=== PATIENT | female | born 1960 | race Caucasian/White ===

== ENCOUNTER 2021-09-27 19:49 | Emergency (ER) | payer OTHER ==
[~2021-09-27 19:49] MED LIST: AUGMENTIN 875-1 EACH PO; AZITHROMYCIN250 MG PO; IBUPROFEN800 MG PO
[2021-09-27 21:11] LABS: BASOPHIL 0.5 % (0-2); EOSINOPHIL 2.9 % (0-5); HCT 41.6 % (37.0-47.0); HGB 13.5 g/dl (12.5-16.0); MCH 31.1 pg (25.0-31.0); MCHC 32.5 g/dL (32.0-36.0); MCV 95.9 fL (78.0-100.0); MONOCYTE 8.4 % (0-12); MPV 9.5 fL (6.0-9.5); NRBC 0; PLT 258 K/uL (150-400); RBC 4.34 M/uL (4.20-5.40); RDW 12.9 % (11.5-14.0); WBC 8.3 K/uL (4.0-10.5)
[2021-09-27 21:40] LABS: ALBUMIN 3.8 g/dL (3.4-5.0); BILIRUBIN - TOTAL 0.4 mg/dL (0.2-1.0); BUN/CREAT RATIO (CALC) 30.8 RATIO; CREATININE 0.78 mg/dL (0.51-0.95); GLOBULIN (CALCULATION) 3.7 g/dL; POTASSIUM 3.7 mmol/L (3.5-5.1); TOTAL PROTEIN 7.5 g/dL (6.4-8.2)
[2021-09-27 21:51] LABS: BILIRUBIN NEGATIVE (NEGATIVE); BLOOD NEGATIVE Ery/uL (NEGATIVE); CLARITY CLEAR (CLEAR); COLOR YELLOW (YELLOW); GLUCOSE (U) NORMAL (NORMAL); LEUKOCYTES TRACE Leu/uL (NEGATIVE); NITRITE NEGATIVE (NEGATIVE); PROTEIN NEGATIVE (NEGATIVE); SPECIFIC GRAVITY <=1.005 (1.001-1.030); UROBILINOGEN 0.2 mg/dL (0.2-1.0); pH 6.5 (5.0-9.0)
[2021-09-27 21:59] LABS: BACTERIA TRACE; URINARY WBC RARE
[2021-09-27] MEDS ORDERED: VALTREX1000 MG PO (22:39)
[2021-09-27] MEDS ORDERED: DICLOFENAC SODI75 MG PO (22:39)
== END 2021-09-27 22:57 | disposition home or self-care (01) ==
LOC: FER 19:49
PROVIDERS: Physician Assistant Medical
DX: R10.31 Right lower quadrant pain (principal); I10 Essential (primary) hypertension; K21.9 Gastro-esophageal reflux disease without esophagitis; E78.5 Hyperlipidemia, unspecified; E03.9 Hypothyroidism, unspecified; Z79.899 Other long term (current) drug therapy; Z79.890 Hormone replacement therapy
CPT/HCPCS: 36415; 80053; 81001; 85025; 87088; J1885